=== PATIENT | male | born 1960 | race Caucasian/White ===

== ENCOUNTER → 2017-01-17 | Outpatient (CLI) | payer MEDICARE ==
--- NOTE | 2017-01-17 16:34 | KCIC ---
INDICATION: Right flank pain. TECHNIQUE: Renal ultrasound was performed. No comparison is available. FINDINGS: Right kidney measures at least 11.4 cm in length and the left 12.1 cm. Aorta and IVC are obscured by bowel gas and are not evaluated. Bladder is grossly unremarkable with both urine jets documented. Prostate is enlarged, volume calculated at 53 cc. IMPRESSION: 1. Normal ultrasound of the kidneys and bladder. 2. Enlarged prostate, please correlate with exam findings and PSA value. Electronically signed by: Javi Alarcon MD (01/17/2017 4:31 PM) [id number]
== END | disposition home or self-care (01) ==
LOC: KCIC US 14:33
DX: N40.0 Benign prostatic hyperplasia without lower urinary tract symptoms (principal)
CPT/HCPCS: 76770